=== PATIENT | female | born 1960 | race Caucasian/White ===

== ENCOUNTER → 2024-05-20 14:49 | Outpatient (REF) | payer BC, SELFPAY | LOC: WDC 14:49 | PROVIDERS: ATTENDING PHYSICIAN Obstetrics & Gynecology Gynecology; FAMILY PHYSICIAN Family Medicine | DX: Z78.0 Asymptomatic menopausal state (principal); Z12.31 Encounter for screening mammogram for malignant neoplasm of breast | CPT/HCPCS: 77063; 77067; 77080 ==

== ENCOUNTER → 2025-02-21 10:16 | Outpatient (REF) | payer BC, SELFPAY | LOC: RCS 10:16 | PROVIDERS: ATTENDING PHYSICIAN Internal Medicine Cardiovascular Disease; FAMILY PHYSICIAN Family Medicine | DX: I34.1 Nonrheumatic mitral (valve) prolapse (principal) | CPT/HCPCS: 93306 ==